=== PATIENT | female | born 1945 | race Caucasian/White ===

== ENCOUNTER 2021-02-02 14:37 | Emergency (ER) | payer OTHER ==
[~2021-02-02] VITALS: Ht 165.1 cm; Wt 57.0 kg
[2021-02-02] MEDS ORDERED: HYDROcodone/APAP 10/325 MG TABLET ONE (16:29)
[2021-02-02] MEDS ORDERED: HYDROcodone/APAP 10/325 MG TABLET PO ONE (16:30)
--- NOTE | 2021-02-02 16:30 | NUR ---
PT MEDICATED PER EMAR, PT TO HAVE SON DRIVE HER HOME.
== END 2021-02-02 16:59 | disposition home or self-care (01) ==
LOC: ED 16:53
DX: S62.346A Nondisplaced fracture of base of fifth metacarpal bone, right hand, initial encounter for closed fracture (principal); S62.101A Fracture of unspecified carpal bone, right wrist, initial encounter for closed fracture; W01.0XXA Fall on same level from slipping, tripping and stumbling without subsequent striking against object, initial encounter; Y93.89 Activity, other specified; Y92.009 Unspecified place in unspecified non-institutional (private) residence as the place of occurrence of the external cause; Y99.8 Other external cause status
CPT/HCPCS: 29125; 99284